=== PATIENT | male | born 1955 | race Caucasian/White ===

== ENCOUNTER 2018-06-16 16:45 | Outpatient (RCR) | payer MEDICARE, SELFPAY ==
--- NOTE | 2018-05-10 17:30 | PT.OPPOC ---
Current Diagnoses Other chronic pain (05/10/18) Pain in right shoulder (05/10/18) Pain in left shoulder (05/10/18) Stiffness of right shoulder, not elsewhere classified (05/10/18) Stiffness of left shoulder, not elsewhere classified (05/10/18) Presence of cardiac pacemaker (05/10/18) Provider Visit Care Team Role Provider Type Sabrina Nova MD Family Provider Non-Staff Primary Care Provider Specialty: Medical Address: [address], [place], [address] Email: Bev Max PA-C Attending Provider Non-Staff Specialty: Family Practice Address: [address] [place] [address], [id number] Email: Plan Of Care PT-OP-T Assessment and Plan Start: 05/11/18 10:34 Freq: Status: Active Protocol: Document 05/10/18 16:10 DCW (Rec: 05/11/18 11:11 DCW [id number]) Physical Therapy Assessment Rehab Potential Rehabilitation Potential Fair Evaluation Complexity Number of Personal Factors/Comorbidities 3 or More Number of Body Systems Impaired 4 or More Clinical Presentation at Evaluation Unstable Impairments Impairments Activity Tolerance Pain Posture Soft Tissue Mobility Strength Tone Goals Four Impairment Severe forward head/rounded shoulder posture Fdc Goal (LTG) Pt to present with a moderate forward head/rounded shoulder at baseline LTG Duration 07/10/18 Three Impairment Limited ROM Medicinal Chemist Goal (LTG) Bilateral shoulder AROM flexion to 140? Bilateral shoulder AROM abduction to 140? LTG Duration 07/10/18 Two Impairment Transfers Short Term Goal (STG) Pt to transfer from his truck to his wheelchair independently in a controlled descent 100% of the time STG Duration 06/10/18 Fdc Goal (LTG) Pt to transfer w/c <-> shower independently with no complaints of shoulder pain or difficulty LTG Duration 07/10/18 One Impairment Pt does not have an appropriate home exercise program Short Term Goal (STG) Pt to be independent and complaint with an appropriate HEP STG Duration 06/10/18 Assessment Summary Assessment Pt presents with sings and symptoms of a right rotator cuff injury limiting his functional strength and mobility. His left arm was not thoroughly tested at this time due to a recent pacemaker placement. Pt's shoulder pain restricts his ability to transfer, decreases is mobility, and severely restricts his ADLs due to his reliance on his upper extremities as a T4 incomplete paraplegic. Skilled therapy should focus on improving ROM and posture, increasing strength, transfer training, and learning pain-control techniques. Physical Therapy Plan Frequency and Duration Frequency of Treatment 2x/Week Duration of Treatment 3 months Plan of Care Start Date 05/10/18 Plan of Care End Date 08/10/18 Therapeutic Interventions Therapeutic Interventions Home Exercise Program Joint Mobilizations Manual Therapy Neuromuscular Re-education Patient/Caregiver Education Self-Care/Home Management Soft Tissue Mobilization Taping Therapeutic Activities Therapeutic Exercises Wheelchair Management Modalities Cold Pack/Ice Massage Hot Packs Next Visit Focus/Plan Next Note Type Treatment Note Next Visit Plan STM, ROM, transfer training, posture training, and flexibility. Plan of Care Dates Plan of Care Start Date 05/10/18 Plan of Care End Date 08/10/18 Please Sign and Return: I have reviewed this Plan of Care and certify that the skilled therapy services above are required to meet the patient?s needs. Physician Signature Date Printed Name and Credentials Clinical Instructor Signature Printed Name and Credentials
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
== END 2018-09-30 14:33 | disposition home or self-care (01) ==
LOC: PHYS 16:45
PROVIDERS: Family Provider Physical Medicine & Rehabilitation; PCP Physical Medicine & Rehabilitation; Visit Provider Physician Assistant Medical
DX: M25.511 Pain in right shoulder (principal); G89.29 Other chronic pain; M25.512 Pain in left shoulder
CPT/HCPCS: 97110; 97140; 97163

== ENCOUNTER 2020-01-25 15:00 | Outpatient (CLI) | payer MEDICARE, SELFPAY ==
--- NOTE | 2020-01-26 11:50 | PT.OPDS ---
Current Diagnoses Paraplegia, unspecified (01/25/20) Visit Care Team Role Provider Type Bev Max PA-C Attending Provider Non-Staff Family Provider Primary Care Provider Referring Provider Specialty: Family Practice Address: [address] [place] [address], [phone] Email: Visit Number Visit Number 1 36 Patient seen for wheelchair evaluation only, ready for discharge.
--- NOTE | 2020-03-22 12:10 | PT.OIE ---
Current Diagnoses Paraplegia, unspecified (01/25/20) Visit Care Team Role Provider Type Bev Max PA-C Attending Provider Non-Staff Family Provider Primary Care Provider Referring Provider Specialty: Family Practice Address: [address] [place] [address], [id number] Email:
== END 2020-06-13 09:34 | disposition home or self-care (01) ==
LOC: PHYS 15:02
PROVIDERS: Family Provider Physician Assistant Medical; PCP Physician Assistant Medical; Referring Provider Physician Assistant Medical; Visit Provider Physician Assistant Medical
DX: G82.20 Paraplegia, unspecified (principal)
CPT/HCPCS: 97161

== ENCOUNTER 2020-09-10 16:00 | Outpatient (RCR) | payer MEDICARE, SELFPAY ==
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
--- NOTE | 2018-12-26 17:31 | PT.OPPOC ---
Current Diagnoses Other chronic pain (12/26/18) Pain in right shoulder (12/26/18) Pain in left shoulder (12/26/18) Visit Care Team Role Provider Type Bev Max PA-C Attending Provider Non-Staff Primary Care Provider Specialty: Family Practice Address: [address] [place] [address], [id number] Email: Plan Of Care PT-OP-T Assessment and Plan Start: 12/26/18 15:23 Freq: Status: Active Protocol: Document 12/26/18 14:30 DCW (Rec: 12/26/18 17:29 DCW [id number]) Physical Therapy Assessment Rehab Potential Rehabilitation Potential Good Evaluation Complexity Number of Personal Factors/Comorbidities 3 or More Number of Body Systems Impaired 4 or More Clinical Presentation at Evaluation Unstable Impairments Impairments Functional Activities, Functional Mobility,Posture, Strength,Tone,Transfers Goals Four Impairment Severe forward head/rounded shoulder posture Mining Teacher Goal (LTG) Pt to present with a moderate forward head/rounded shoulder at baseline LTG Duration 02/25/19 Three Impairment Limited ROM Mining Teacher Goal (LTG) Bilateral shoulder AROM flexion to 140? LTG Duration 02/25/19 Two Impairment Transfers Short Term Goal (STG) Pt to transfer bed->w/c with no increased shoulder pain STG Duration 01/26/19 Mining Teacher Goal (LTG) Pt to transfer w/c <-> shower independently with no complaints of shoulder pain or difficulty LTG Duration 02/25/19 One Impairment Pt does not have an appropriate home exercise program Short Term Goal (STG) Pt to be independent and complaint with an appropriate HEP STG Duration 01/26/19 Assessment Summary Assessment Pt presents with signs and symptoms of multi-factorial shoulder pain and stiffness. 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 Pt likely sprained his infraspinatus two weeks ago lifting his truck tailgate, which is limiting his transfers more than usual. Additionally, pt's complaints of nighttime tingling, numbness, and pain down his arm is suspicious of Thoracic Outlet Syndrome, and some of these symptoms were able to be reproduced with right shoulder positioning in the clinic. Pt requires strengthening of his bilateral shoulders, especially parascapular muscles in order to get his shoulder blades into a more proper position, as well as STM to decrease tone in his pecs, infraspinatus, scalenes, and upper trap. Posture training, ergonomic training, and an HEP will also all be helpful returning his shoulder function to baseline, which is incredibly important for him, has he relies on his arms for all mobility. Physical Therapy Plan Frequency and Duration Frequency of Treatment 2x/Week Duration of Treatment 3 months Plan of Care Start Date 12/26/18 Plan of Care End Date 03/26/19 Therapeutic Interventions Therapeutic Interventions Home Exercise Program,Joint Mobilizations,Manual Therapy, Neuromuscular Re-education, Patient/Caregiver Education, Self-Care/Home Management,Soft Tissue Mobilization,Taping, Therapeutic Activities, Wheelchair Management Modalities Cold Pack/Ice Massage,Electric Stimulation,Hot Packs Other Therapeutic Interventions PACEMAKER Pt in process of contacting pace maker salesperson art objects to see if he is able to undergo E -stim. No E-stim without okay from salesperson art objects. Next Visit Focus/Plan Next Note Type Treatment Note Next Visit Plan Posture training, shoulder strengthening, ROM/flexibility Plan of Care Dates Plan of Care Start Date 12/26/18 Plan of Care End Date 03/26/19
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
--- NOTE | 2019-03-29 17:21 | PT.OPPOC ---
Physical, Occupational & Speech Therapy At [facility] Current Diagnoses Other chronic pain (03/29/19) Pain in right shoulder (03/29/19) Pain in left shoulder (03/29/19) Visit Care Team Role Provider Type Bev Max PA-C Attending Provider Non-Staff Primary Care Provider Specialty: Family Practice Address: [address] [place] [address], [facility] Email: Plan Of Care PT-OP-T Assessment and Plan Start: 12/26/18 15:23 Freq: Status: Active Protocol: Document 03/29/19 16:05 DCW (Rec: 03/29/19 17:21 DCW [id number]) Physical Therapy Assessment Impairments Impairments Functional Activities, Functional Mobility,Posture, Strength,Tone,Transfers Goals Four Impairment Severe forward head/rounded shoulder posture Alf Goal (LTG) Pt to present with a moderate forward head/rounded shoulder at baseline LTG Duration 06/28/19 - Improving Three Impairment Limited ROM Alf Goal (LTG) Bilateral shoulder AROM flexion to 140? LTG Duration 06/28/19 - Improving Two Impairment Transfers Short Term Goal (STG) Pt to transfer bed->w/c with no increased shoulder pain STG Duration Met Guest Services Representative Goal (LTG) Pt to transfer w/c <-> shower independently with no complaints of shoulder pain or difficulty LTG Duration 06/28/19 - Improving One Impairment Pt does not have an appropriate home exercise program Short Term Goal (STG) Pt to be independent and complaint with an appropriate HEP -Pt waiting for set up of home gym STG Duration 06/28/19 Assessment Summary Assessment Pt showing good progress in overall muscle tone and shoulder ROM. Pt shoulder strength has not changed much since his initial evaluation. Skilled PT should continue to be beneficial in order to continue to improve ROM, functional mobility/transfers, and decreasing hypertonia. 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 Physical Therapy Plan Frequency and Duration Frequency of Treatment 2x/Week Duration of Treatment 3 months Plan of Care Start Date 03/29/19 Plan of Care End Date 06/28/19 Therapeutic Interventions Therapeutic Interventions Home Exercise Program,Joint Mobilizations,Manual Therapy, Neuromuscular Re-education, Patient/Caregiver Education, Self-Care/Home Management,Soft Tissue Mobilization,Taping, Therapeutic Activities, Wheelchair Management Modalities Cold Pack/Ice Massage,Hot Packs Other Therapeutic Interventions PACEMAKER No E-stim. Next Visit Focus/Plan Next Note Type Treatment Note Next Visit Plan Continue per PT POC: Posture training, shoulder strengthening, ROM/flexibility Plan of Care Dates Plan of Care Start Date 03/29/19 Plan of Care End Date 06/28/19 Electronically Signed by: Ritchie Jackson, PT 03/29/19 [id number] Please Sign and Return: I have reviewed this Plan of Care and certify that the skilled therapy services above are required to meet the patient?s needs. Physician Signature Date Printed Name and Credentials Clinical Instructor Signature Printed Name and Credentials
--- NOTE | 2019-04-04 12:16 | PT-OP ANOTE ---
Pt cancelled today's appt secondary to schedule conflict per front desk admin notes.
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
--- NOTE | 2019-07-04 12:58 | PT-OP ANOTE ---
Left message on patient's voicemail about return to therapy as the clinic slowly opens back up following CDC recommendations. Pt will call back if interested about scheduling further appointments.
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
--- NOTE | 2019-07-19 15:15 | PT.OPPOC ---
Physical, Occupational & Speech Therapy At [facility] Current Diagnoses Other chronic pain (07/19/19) Pain in right shoulder (07/19/19) Pain in left shoulder (07/19/19) Visit Care Team Role Provider Type Bev Max PA-C Attending Provider Non-Staff Primary Care Provider Specialty: Family Practice Address: [address] [place] [address], [facility] Email: Plan Of Care PT-OP-T Assessment and Plan Start: 12/26/18 15:23 Freq: Status: Active Protocol: Document 07/19/19 14:35 DCW (Rec: 07/19/19 15:14 DCW [id number]) Physical Therapy Assessment Impairments Impairments Functional Activities, Functional Mobility,Posture, Strength,Tone,Transfers Goals Four Impairment Severe forward head/rounded shoulder posture Half-Way Goal (LTG) Pt to present with a moderate forward head/rounded shoulder at baseline LTG Duration 09/18/19 - Improving Three Impairment Limited ROM Half-Way Goal (LTG) Bilateral shoulder AROM flexion to 140? LTG Duration 09/18/19 - Improving Two Impairment Transfers Short Term Goal (STG) Pt to transfer bed->w/c with no increased shoulder pain STG Duration Met Entry Level Staff Accountant Goal (LTG) Pt to transfer w/c <-> shower independently with no complaints of shoulder pain or difficulty LTG Duration 09/18/19 - Improving One Impairment Pt does not have an appropriate home exercise program Short Term Goal (STG) Pt to be independent and complaint with an appropriate HEP -Pt waiting for set up of home gym STG Duration 08/19/19 Assessment Summary Assessment Pt shows overall decline in function and range of motion since his last assessment after a two month hiatus from therapy due to Covid-19 shutdown. Pt shows increased parascapular tone and shoulder weakness. Physical Therapy should benefit from skilled therapy focusing on posture, strengthening, ROM, and decreasing muscle tone. Physical Therapy Plan Frequency and Duration Frequency of Treatment 2x/Week Duration of Treatment 3 months Plan of Care Start Date 07/19/19 Plan of Care End Date 10/17/19 Therapeutic Interventions Therapeutic Interventions Home Exercise Program,Joint Mobilizations,Manual Therapy, Neuromuscular Re-education, Patient/Caregiver Education, Self-Care/Home Management,Soft Tissue Mobilization,Taping, Therapeutic Activities, Wheelchair Management Modalities Cold Pack/Ice Massage,Hot Packs Other Therapeutic Interventions PACEMAKER No E-stim. Next Visit Focus/Plan Next Note Type Treatment Note Next Visit Plan Continue per PT POC: Posture training, shoulder strengthening, ROM/flexibility Plan of Care Dates Plan of Care Start Date 07/19/19 Plan of Care End Date 10/17/19 Electronically Signed by: Ritchie Jackson, PT 07/19/19 5020 Please Sign and Return: I have reviewed this Plan of Care and certify that the skilled therapy services above are required to meet the patient?s needs. Physician Signature Date Printed Name and Credentials Clinical Instructor Signature Printed Name and Credentials
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
--- NOTE | 2019-10-20 15:15 | PT.OPPOC ---
Physical, Occupational & Speech Therapy At [facility] Current Diagnoses Other chronic pain (10/20/19) Pain in right shoulder (10/20/19) Pain in left shoulder (10/20/19) Visit Care Team Role Provider Type Bev Max PA-C Attending Provider Non-Staff Primary Care Provider Specialty: Family Practice Address: [address] [place] [address], [facility] Email: Plan Of Care PT-OP-T Assessment and Plan Start: 12/26/18 15:23 Freq: Status: Active Protocol: Document 10/20/19 14:40 DCW (Rec: 10/20/19 15:14 DCW [id number]) Physical Therapy Assessment Impairments Impairments Functional Activities, Functional Mobility,Posture, Strength,Tone,Transfers Goals Four Impairment Severe forward head/rounded shoulder posture Mcc Goal (LTG) Pt to present with a moderate forward head/rounded shoulder at baseline LTG Duration 09/18/19 - Improving Three Impairment Limited ROM Mcc Goal (LTG) Bilateral shoulder AROM flexion to 140? LTG Duration 09/18/19 - Improving Two Impairment Transfers Short Term Goal (STG) Pt to transfer bed->w/c with no increased shoulder pain STG Duration Met Animation Producer Goal (LTG) Pt to transfer w/c <-> shower independently with no complaints of shoulder pain or difficulty LTG Duration 09/18/19 - Improving One Impairment Pt does not have an appropriate home exercise program Short Term Goal (STG) Pt to be independent and complaint with an appropriate HEP -Pt waiting for set up of home gym STG Duration 08/19/19 Assessment Summary Assessment Pt showing great progress recently, improved strength and ROM. Still displays increased tone and tenderness along parascapular musculature . Extension and IR of right arm causes sharp pain. 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 Physical Therapy Plan Frequency and Duration Frequency of Treatment 2x/Week Duration of Treatment 3 months Plan of Care Start Date 10/20/19 Plan of Care End Date 01/18/20 Therapeutic Interventions Therapeutic Interventions Home Exercise Program,Joint Mobilizations,Manual Therapy, Neuromuscular Re-education, Patient/Caregiver Education, Self-Care/Home Management,Soft Tissue Mobilization,Taping, Therapeutic Activities, Wheelchair Management Modalities Cold Pack/Ice Massage,Hot Packs Other Therapeutic Interventions PACEMAKER No E-stim. Next Visit Focus/Plan Next Note Type Treatment Note Next Visit Plan Continue per PT POC: Posture training, shoulder strengthening, ROM/flexibility Plan of Care Dates Plan of Care Start Date 10/20/19 Plan of Care End Date 01/18/20 Electronically Signed by: Ritchie Jackson, PT 10/20/19 [id number] Please Sign and Return: I have reviewed this Plan of Care and certify that the skilled therapy services above are required to meet the patient?s needs. Physician Signature Date Printed Name and Credentials Clinical Instructor Signature Printed Name and Credentials
--- NOTE | 2019-10-27 13:48 | PT-OP ANOTE ---
Pt called to cancel early pm same day appt due to being called into work, can't make today's PT appt.
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
--- NOTE | 2020-01-18 17:07 | PT.OPPOC ---
Physical, Occupational & Speech Therapy At [facility] Current Diagnoses Other chronic pain (01/18/20) Pain in right shoulder (01/18/20) Pain in left shoulder (01/18/20) Visit Care Team Role Provider Type Bev Max PA-C Attending Provider Non-Staff Primary Care Provider Specialty: Family Practice Address: [address] [place] [address], [facility] Email: Plan Of Care PT-OP-T Assessment and Plan Start: 12/26/18 15:23 Freq: Status: Active Protocol: Document 01/18/20 15:25 DCW (Rec: 01/18/20 16:13 DCW [id number]) Physical Therapy Assessment Impairments Impairments Functional Activities, Functional Mobility,Posture, Strength,Tone,Transfers Goals Four Impairment Severe forward head/rounded shoulder posture Assisted Goal (LTG) Pt to present with a moderate forward head/rounded shoulder at baseline LTG Duration 03/19/20 - Improving Three Impairment Limited ROM Assisted Goal (LTG) Bilateral shoulder AROM flexion to 140? LTG Duration 03/19/20 - Improving Two Impairment Transfers Short Term Goal (STG) Pt to transfer bed->w/c with no increased shoulder pain STG Duration Met Cutting And Boning Supervisor Goal (LTG) Pt to transfer w/c <-> shower independently with no complaints of shoulder pain or difficulty LTG Duration Met One Impairment Pt does not have an appropriate home exercise program Short Term Goal (STG) Pt to be independent and complaint with an appropriate HEP -Pt waiting for set up of home gym STG Duration 03/19/20 Progress Towards Goals Progress Towards Goals Slow Progress due to Activity Tolerance,Slow Progress due to Medical Issues Assessment Summary Assessment Pt overall fairly stagnant with progress, some areas show slight improvement, some show a very slight decline. Pt is, however, able to remain functional using his arms and shoulder as his primary method of mobility during transfers and propelling his wheelchair, which he was unable to do prior to beginning therapy. It is likely that continued skilled therapy will continue to allow pt to maintain his independence through upper extremity mobility and strengthening. Continued therapy indicated at this time . Physical Therapy Plan Frequency and Duration Frequency of Treatment 1x/Week Duration of Treatment 3 months Plan of Care Start Date 01/18/20 Plan of Care End Date 04/19/20 Therapeutic Interventions Therapeutic Interventions Home Exercise Program,Joint Mobilizations,Manual Therapy, Neuromuscular Re-education, Patient/Caregiver Education, Self-Care/Home Management,Soft Tissue Mobilization,Taping, Therapeutic Activities, Wheelchair Management Modalities Cold Pack/Ice Massage,Hot Packs Other Therapeutic Interventions PACEMAKER No E-stim. Next Visit Focus/Plan Next Note Type Treatment Note Next Visit Plan encourage pt to resume exercise program Plan of Care Dates Plan of Care Start Date 01/18/20 Plan of Care End Date 04/19/20 Electronically Signed by: Ritchie Jackson, PT 01/18/20 [id number] Please Sign and Return: I have reviewed this Plan of Care and certify that the skilled therapy services above are required to meet the patient?s needs. Physician Signature Date Printed Name and Credentials Clinical Instructor Signature Printed Name and Credentials
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
--- NOTE | 2020-02-08 14:34 | PT-OP ANOTE ---
Pt cancelled same day appt, running behind a work and can't make it.
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
--- NOTE | 2020-04-24 16:32 | PT.OPPOC ---
Physical, Occupational & Speech Therapy At Loc[facility] Current Diagnoses Other chronic pain (04/24/20) Pain in right shoulder (04/24/20) Pain in left shoulder (04/24/20) Visit Care Team Role Provider Type Bev Max PA-C Attending Provider Non-Staff Primary Care Provider Specialty: Family Practice Address: [address] [place] [address], [facility] Email: Plan Of Care PT-OP-T Assessment and Plan Start: 12/26/18 15:23 Freq: Status: Active Protocol: Document 04/24/20 16:18 AW (Rec: 04/24/20 16:31 AW [id number]) Physical Therapy Assessment Rehab Potential Rehabilitation Potential Good Evaluation Complexity Number of Personal Factors/Comorbidities 3 or More Number of Body Systems Impaired 4 or More Impairments Impairments Functional Activities, Functional Mobility,Posture, Strength,Tone,Transfers Goals Four Impairment Severe forward head/rounded shoulder posture Assisted Goal (LTG) Pt to present with a moderate forward head/rounded shoulder at baseline LTG Duration 04/19/20 - Improving Three Impairment Limited ROM Assisted Goal (LTG) Bilateral shoulder AROM flexion to 140? 04/19/20 - Improving LTG Duration 07/22/20 Two Impairment Transfers Short Term Goal (STG) Pt to transfer bed->w/c with no increased shoulder pain STG Duration Met Prepress Specialist Goal (LTG) Pt to transfer w/c <-> truck independently with no complaints of shoulder pain or difficulty LTG Duration 07/22/20 One Impairment Pt does not have an appropriate home exercise program Short Term Goal (STG) Pt to be independent and complaint with an appropriate HEP -Pt waiting for set up of home gym STG Duration 07/22/20 Progress Towards Goals Progress Towards Goals Progressing Toward Goals,Slow Progress - Other Progress Comments Pt is progressing toward goals but remains limited due to daily caregiving and work demands. He would benefit from continued therapy to address pain, ROM, and strength of bilateral shoulders. Assessment Summary Assessment Pt tolerated treatment focused on STM, stretching, and AROM bilateral shoulders. Pt would like to continue PT to improve pain symptoms, ROM, and strength. Physical Therapy Plan Frequency and Duration Frequency of Treatment 1-2x/week Duration of Treatment 3 months Plan of Care Start Date 04/24/20 Plan of Care End Date 07/22/20 Therapeutic Interventions Therapeutic Interventions Home Exercise Program,Joint Mobilizations,Manual Therapy, Neuromuscular Re-education, Patient/Caregiver Education, Self-Care/Home Management,Soft Tissue Mobilization,Taping, Therapeutic Activities, Wheelchair Management Modalities Cold Pack/Ice Massage,Hot Packs Other Therapeutic Interventions PACEMAKER No E-stim. Next Visit Focus/Plan Next Note Type Treatment Note Next Visit Plan Continue per PT POC: Review IR /ER with towel on table top. Pt is not yet set up with ex equip at work yet. Continue STM and ther ex for shd pain Plan of Care Dates Plan of Care Start Date 04/24/20 Plan of Care End Date 07/22/20 Electronically Signed by: Mouna Clay, PT 04/24/20 [id number] Please Sign and Return: I have reviewed this Plan of Care and certify that the skilled therapy services above are required to meet the patient?s needs. Physician Signature Date Printed Name and Credentials Clinical Instructor Signature Printed Name and Credentials
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
== END 2020-09-11 07:34 | disposition home or self-care (01) ==
LOC: PHYS 16:00
PROVIDERS: PCP Physician Assistant Medical; Visit Provider Physician Assistant Medical
DX: M25.511 Pain in right shoulder (principal); G89.29 Other chronic pain; M25.512 Pain in left shoulder
CPT/HCPCS: 97110; 97112; 97140; 97163